=== PATIENT | male | born 1965 | race Caucasian/White ===

== ENCOUNTER 2022-03-02 12:46 | Outpatient (CLI) | payer OTHER, SELFPAY ==
--- NOTE | ~2022-03-02 | CT_ITS ---
EXAMINATION: CT abdomen pelvis wo con DATE: 03/02/2022 13:18 INDICATION: Kidney stones TECHNIQUE: Computed tomography (CT) of the abdomen and pelvis was performed without intravenous contr ast. The dose-length product (DLP) was 287.69 mGy-cm. Automated exposure control and iterative recons truction technique were employed. COMPARISON: None FINDINGS: Minimal dependent atelectasis is present in the lung bases. The heart size is normal. The l iver, spleen, pancreas, gallbladder, and adrenal glands are normal. There is a [address] one of the left kidney. The right kidney is unremarkable. There is a 5 mm stone in the right distal u reter without significant hydronephrosis or hydroureter. No pathologically enlarged abdominal or pelv ic lymph nodes are identified. There is no free intraperitoneal gas or evidence of bowel obstruction. The appendix is normal. Colonic diverticulosis is present without evidence of diverticulitis. There is mild lumbar spondylosis. There is a small fat-containing umbilical hernia. IMPRESSION: 1. 5 mm stone of the right distal ureter without significant hydronephrosis or hydroureter. Urologic evaluation is recommended. 2. Nonobstructing left nephrolithiasis. Reviewed, dictated and finalized at location A.
== END 2022-03-02 12:47 | disposition home or self-care (01) ==
LOC: ANHIMG 12:54
DX: N20.2 Calculus of kidney with calculus of ureter (principal)
CPT/HCPCS: 74176